=== PATIENT | male | born 1945 | race Caucasian/White ===

== ENCOUNTER → 2016-06-14 | Outpatient (CLI) | payer OTHER ==
[~2016-06-14] MED LIST: CHOL100027 PO; FLM4 PO; MULTTAB PO; SIMV20TA2 PO
--- NOTE | 2016-06-14 11:33 | DIAGNOSTIC IMAGING REPORT ---
KUB HISTORY: N20.0 [id number] COMPARISON: [facility] 06/22/2015. FINDINGS: The bowel gas pattern is unremarkable. There are no dilated loops of small bowel to suggest an obstruction. No renal calculi. No ureteral calculi. No pneumoperitoneum or pneumatosis. IMPRESSION: No renal or ureteral stones. Electronically signed by: Leonid Danielle M.D. 06/14/2016 11:31 AM Dictated Date/Time: 06/14/2016 11:30 AM
== END | disposition home or self-care (01) ==
LOC: C.RAD 11:02
PROVIDERS: ATTEND Urology
DX: N20.0 Calculus of kidney (principal)

== ENCOUNTER → 2017-07-04 | Outpatient (CLI) | payer OTHER ==
--- NOTE | 2017-07-04 10:59 | DIAGNOSTIC IMAGING REPORT ---
KUB HISTORY: Nephrolithiasis. COMPARISON: [facility] 06/14/2016. FINDINGS: The bowel gas pattern is unremarkable. There are no dilated loops of small bowel to suggest an obstruction. Stable 6 mm calcification overlying the left 12th rib. This likely represents a renal stone. No right renal calculi. No ureteral calculi. No pneumoperitoneum or pneumatosis. IMPRESSION: Stable 6 mm calcification overlying the left kidney which likely represents a stone. No ureteral calculi. Electronically signed by: Leonid Danielle M.D. 07/04/2017 10:58 AM Dictated Date/Time: 07/04/2017 10:55 AM
== END | disposition home or self-care (01) ==
LOC: C.RAD 10:23
PROVIDERS: ATTEND Urology
DX: N20.0 Calculus of kidney (principal)